=== PATIENT | male | born 1975 | race Caucasian/White ===

== ENCOUNTER 2024-09-17 10:55 | Emergency (ER) | payer BC, SELFPAY ==
[2024-09-17 11:19] VITALS: BP 138/96
[2024-09-17 12:01] LABS: Urine Character Clear (Clear)
[2024-09-17 12:12] LABS: ALT (SGPT) 50 U/L (0-50); AST (SGOT) 35 U/L (17-59); Albumin 4.7 g/dl (3.5-5.0); Alkaline Phosphatase 56 U/L (38-126); Blood Urea Nitrogen 4 mg/dl (9-20); Calcium 9.9 mg/dl (8.4-10.2); Carbon Dioxide 25 mmol/L (22-30); Chloride 105 mmol/L (98-107); Glucose 107 mg/dl (70-99); Hematocrit 46.4 % (39.0-52.0); Hemoglobin 16.6 g/dL (13.0-18.0); Lipase 47 U/L (23-300); Mean Corp Hgb Conc. 35.8 g/dL (33.0-37.0); Mean Corpuscular Volume 84.7 fL (80.0-94.0); Nucleated Red Blood Cells % 0 % (-); Platelet Count 225 10^3/uL (130-400); Potassium 4.0 mmol/L (3.5-5.1); Red Cell Dist. Width 14.5 % (11.5-14.5); Sodium 137 mmol/L (135-145); Total Protein 7.3 g/dl (6.3-8.2); eGFR > 60.00
[2024-09-17 12:19] LABS: Urine Red Blood Cell 0-2 /HPF (0-2)
[2024-09-17 13:31] VITALS: BMI 27.7
[2024-09-17 13:35] VITALS: BP 133/74
[2024-09-17 14:00] VITALS: BP 130/77
[2024-09-17] MEDS: ZOFRAN 4 MG IV (14:40)
[2024-09-17] MEDS: OMNIPAQUE 50 ML PO (14:41)
--- NOTE | 2024-09-17 14:56 | ED.GENMED ---
History of Present Illness
<So Chu PA-C - Last Filed: 09/17/24 17:09>
General
Chief Complaint: Abdominal Pain
Source: patient
Exam Limitations: none
Time Seen by Provider: 09/17/24 13:27
Nursing documentation reviewed up to this point in time: agreed with
History of Present Illness
History of Present Illness:
see MDM
Phy Exam
<Wilfrido Elizabeth PA-C - Last Filed: 09/17/24 19:30>
Physical Exam
Physical Exam:
Across the GEN: Well appearing, NAD, WDWN
HEENT: Oral mucosa moist, no scleral icterus
Cardiac: Regular rate
Lung: No respiratory distress, no tachypnea
Abdomen: Soft, mild tenderness, no peritoneal signs
MSK: No gross deformity or injuries
Skin: Good color, no pallor or jaundice, no rashes
Neuro: AO x3, moves all extremities freely
Psych: Calm, cooperative
Sepsis
<Wilfrido Elizabeth PA-C - Last Filed: 09/17/24 19:30>
Sepsis Screening
Sepsis Assessment: Sepsis Ruled Out
Sepsis Screen
Sepsis Screen: Sepsis Ruled Out
Date: 09/17/24
Time: 19:30
Course
<So Chu PA-C - Last Filed: 09/17/24 17:09>
Orders/Labs/Results
Orders:
Orders
09/17/24 11:29
Electrocardiogram (*1) Urgent
Reason for Study: Abdominal Pain
EKG- Treatment ONCE
09/17/24 11:39
Type+Screen Urgent
Complete Blood Count/With Diff Urgent
Comprehensive Metabolic Panel Urgent
Lipase Urgent
Urinalysis Reflex To Culture Urgent
Date Specimen was Collected: 09/17/24
Time Specimen was Collected: 11:29
Urine Microscopic Reflex Cult Urgent
09/17/24 14:15
CT Abd/pel W Iv And Oral Contr Urgent
Comment:
Reason For Exam: sbo, h/o resection
Iohexol [Omnipaque] See Protocol PO NOW STA
09/17/24 14:30
Ondansetron Injectable [Zofran] 4 mg IV NOW STA
09/17/24 14:40
ABO2 Urgent
BBK Wristband Number:
Associate notified that ABO2 has been ordered: WILLIAM-ER
Date: 09/17/24
Time: 11:59
Price Clerk ID: [id number]
Abnormal Lab Results
09/17/24
11:39
Abs Immat Gran (auto) 0.1 H 10^3/uL
(0-0.05)
Absolute Lymphs (auto) 1.0 L 10^3/uL
(1.2-3.4)
Immature Gran % 0.8 H %
(0-0.5)
Lymphocytes % 11.6 L %
(20.5-51.1)
Eosinophils % 6.4 H %
(0-6)
BUN 4 L mg/dl
(9-20)
Glucose 107 H mg/dl
(70-99)
Total Bilirubin 2.0 H mg/dl
(0.2-1.3)
Urine Bacteria (Reflex) Few A
(Negative)
Urine Glucose 2+ A
(Negative)
Urine Albumin (Reflex) 1+ A
(Neg - Trace)
09/17/24 11:39
09/17/24 11:39
Vital Signs
Initial and Last Documented VS:
Initial Vital Signs
Temp Pulse Resp BP Pulse Ox
98.4 F 96 16 138/96 100
09/17/24 11:19 09/17/24 11:19 09/17/24 11:19 09/17/24 11:19 09/17/24 11:19
Last Documented Vital Signs
Temp Pulse Resp BP Pulse Ox
98.4 F 83 16 124/78 96
09/17/24 11:19 09/17/24 13:35 09/17/24 13:35 09/17/24 16:00 09/17/24 16:45
<Wilfrido Elizabeth PA-C - Last Filed: 09/17/24 19:30>
Orders/Labs/Results
Orders:
Orders
09/17/24 11:29
Electrocardiogram (*1) Urgent
Reason for Study: Abdominal Pain
EKG- Treatment ONCE
09/17/24 11:39
Type+Screen Urgent
Complete Blood Count/With Diff Urgent
Comprehensive Metabolic Panel Urgent
Lipase Urgent
Urinalysis Reflex To Culture Urgent
Date Specimen was Collected: 09/17/24
Time Specimen was Collected: 11:29
Urine Microscopic Reflex Cult Urgent
09/17/24 14:15
CT Abd/pel W Iv And Oral Contr Urgent
Comment:
Reason For Exam: sbo, h/o resection
Iohexol [Omnipaque] See Protocol PO NOW STA
09/17/24 14:30
Ondansetron Injectable [Zofran] 4 mg IV NOW STA
09/17/24 14:40
ABO2 Urgent
BBK Wristband Number:
Associate notified that ABO2 has been ordered: WILLIAM-ER
Date: 09/17/24
Time: 11:59
Price Clerk ID: [id number]
Abnormal Lab Results
09/17/24
11:39
Abs Immat Gran (auto) 0.1 H 10^3/uL
(0-0.05)
Absolute Lymphs (auto) 1.0 L 10^3/uL
(1.2-3.4)
Immature Gran % 0.8 H %
(0-0.5)
Lymphocytes % 11.6 L %
(20.5-51.1)
Eosinophils % 6.4 H %
(0-6)
BUN 4 L mg/dl
(9-20)
Glucose 107 H mg/dl
(70-99)
Total Bilirubin 2.0 H mg/dl
(0.2-1.3)
Urine Bacteria (Reflex) Few A
(Negative)
Urine Glucose 2+ A
(Negative)
Urine Albumin (Reflex) 1+ A
(Neg - Trace)
09/17/24 11:39
09/17/24 11:39
Vital Signs
Initial and Last Documented VS:
Initial Vital Signs
Temp Pulse Resp BP Pulse Ox
98.4 F 96 16 138/96 100
09/17/24 11:19 09/17/24 11:19 09/17/24 11:19 09/17/24 11:19 09/17/24 11:19
Last Documented Vital Signs
Temp Pulse Resp BP Pulse Ox
98.4 F 83 16 124/78 96
09/17/24 11:19 09/17/24 13:35 09/17/24 13:35 09/17/24 16:00 09/17/24 16:45
<So Chu PA-C - Last Filed: 09/17/24 17:09>
MDM/Problems Addressed
Differential Diagnosis Includes:
see MDM
MDM/Problems Addressed:
Note:
CHIEF COMPLAINT(S)
Frequent diarrhea and nausea.
HISTORY OF PRESENT ILLNESS
The patient is a 49-year-old male with a significant surgical history, including complications from open appendectomy as a child with bowel resection and subsequent adhesion-induced bowel obstruction five years ago. The patient described symptoms
similar to his previous bowel obstruction with diarrhea persisting for one week. Initially, it was larger in volume but has decreased since reducing food intake. Despite eating less, the patient reports frequent, though low-volume stools, with an
urge to defecate but minimal results. The patient notes episodes of nausea, particularly on the way to the hospital, reminiscent of past obstruction episodes. He denies abdominal pain, significant bloating, fever, or dysuria but reports decreased
urine output. The patient recently underwent a colonoscopy within the last six months.
SOCIAL DETERMINANTS AFFECTING HEALTH
The patient has a history of living in the current area for approximately three months after relocating. No specific social determinants affecting health were discussed.
ALLERGIES
Penicillin.
PAST MEDICAL HISTORY
The patient has a surgical history of bowel resection for congenital malrotation and adhesiolysis for bowel obstruction. No other chronic medical conditions such as hypertension, diabetes, or hypercholesterolemia were reported.
PAST SURGICAL HISTORY
Previous bowel resection and adhesiolysis secondary to bowel obstruction.
PLAN
The plan is to conduct imaging with contrast to evaluate for possible bowel obstruction, adhering to standard protocol. The patient will be advised to attempt oral contrast intake but to stop if it induces significant discomfort or nausea.
Intravenous contrast will be considered as appropriate. Anti-emetic medication will be provided to manage nausea, and pain relief will be offered if needed. The nurse will facilitate giving the contrast for the scan.
DIFFERENTIAL DIAGNOSIS
The Differential Diagnosis includes, in no particular order and is not limited to:
1. Bowel obstruction
2. Gastroenteritis
3. Partial bowel obstruction due to adhesions
4. Irritable Bowel Syndrome
5. Biliary colic
6. Small intestine bacterial overgrowth
7. Inflammatory bowel diseases such as Crohns disease
8. Celiac disease
9. Drug-induced diarrhea
<So Chu PA-C - Last Filed: 09/17/24 17:09>
*Pulse Oximetry
SaO2: 97
Oxygen Mode of Delivery: Room air
<Wilfrido Elizabeth PA-C - Last Filed: 09/17/24 19:30>
*Pulse Oximetry
Patient hypoxic: no
*Critical Care Note
Total Time (30-74mins, 75-104mins- exclusive of procedures): Not Applicable
<Wilfrido Elizabeth PA-C - Last Filed: 09/17/24 19:30>
Update Note
Update Note:
Received patient in signout from So Chu PA-C pending imaging. Imaging revealed pancolitis. No evidence for bowel obstruction. He was unable to provide stool specimen in the ED. Denies any recent antibiotics in the past 90 days or
hospitalizations that would suggest C. difficile thus we will treat empirically with Cipro and Flagyl due to penicillin allergy, stool specimen collection container sent home with patient with outpatient lab slip
ED Attending Note
<So Chu PA-C - Last Filed: 09/17/24 17:09>
-
Portions of this chart may have been created with voice recognition software.� Occasional wrong word or��sound alike� substitutions may have occurred due to the inherent limitations of voice recognition software.
Discharge Plan
Departure
Patient Disposition: Home (Routine Discharge)
Date of Disposition: 09/17/24
Time of Disposition: 18:04
Patient with high blood pressure during this ER visit?: No
Discharge Problem:
Pancolitis
Instructions: Colitis - Discharge instructions
Prescriptions:
New
metronidazole 500 mg tablet
500 mg PO TID 10 Days Qty: 30 0RF
ciprofloxacin HCl 500 mg tablet
500 mg PO BID 10 Days Qty: 20 0RF
oxycodone-acetaminophen [Percocet] 5-325 mg tablet
1 tab PO Q6HPRN PRN (Reason: pain) Qty: 8 0RF
Referrals:
Donavon Nelson MD [Family Provider, Internal Medicine]
Activity Restrictions/Additional Instructions:
Provide stool specimens as soon as possible
Interventions
Interventions:
*Risk Screen - Suicide Last Done: 09/17/24 11:19
*General Assessment Last Done: 09/17/24 13:33
*Neglect/Abuse Screening Last Done: 09/17/24 11:19
*ED- Fall Risk Assessment Last Done: 09/17/24 13:32
*ED COVID-19 Vaccine History Last Done: 09/17/24 13:32
*Nursing Disposition Last Done: 09/17/24 18:21
JE-Tokwww-Iqlmesom[facility] Assessment Last Done: 09/17/24 13:30
Discharge Date and Time
Discharge Date/Time: 09/17/24 18:21
Print Language: CZECH
[2024-09-17 15:00] VITALS: BP 139/76
[2024-09-17 16:00] VITALS: BP 124/78
== END 2024-09-17 18:21 | disposition home or self-care (01) ==
LOC: EMR 10:55
PROVIDERS: Emergency Medicine; EMERGENCY PHYSICIAN Emergency Medicine; FAMILY PHYSICIAN Internal Medicine
DX: K52.9 Noninfective gastroenteritis and colitis, unspecified (principal); Z90.49 Acquired absence of other specified parts of digestive tract
CPT/HCPCS: 99284; 96374; 74177; 80053; 81003; 81015; 83690; 85025; 86850; 86900; 86901; 93005; Q9967

== ENCOUNTER → 2024-09-18 16:47 | Outpatient (REF) | payer BC, SELFPAY | LOC: REG 16:47 | PROVIDERS: ATTENDING PHYSICIAN Physician Assistant | DX: K51.00 Ulcerative (chronic) pancolitis without complications (principal) | CPT/HCPCS: 87045; 87046; 87324; 87427; 87449 ==